=== PATIENT | male | born 2000 | race Caucasian/White ===

== ENCOUNTER 2019-09-23 18:23 | Emergency (ER) | payer MEDICAID ==
[~2019-09-23] VITALS: Ht 188 cm; Wt 77.0 kg
[~2019-09-23 18:23] MED LIST: LIDOcaine 1% W/epiNEPHrine 1:100,000 20ml vial ONE; NO HOME MEDS
[2019-09-23 18:37] VITALS: BP 120/78
[2019-09-23] MEDS ORDERED: TETanus/Pertussis (Acell)/Diphther VAC/PF (Tdap-Adult) 0.5ml syringe IMVAC ONE (19:40)
[2019-09-23] MEDS ORDERED: bacitracin 15gm ointment TP ONE (19:40)
== END 2019-09-23 20:36 | disposition home or self-care (01) ==
LOC: ER 18:24
DX: S60.453A Superficial foreign body of left middle finger, initial encounter (principal); F12.90 Cannabis use, unspecified, uncomplicated; Z56.0 Unemployment, unspecified; Z72.89 Other problems related to lifestyle; X58.XXXA Exposure to other specified factors, initial encounter; Y93.89 Activity, other specified; Y92.89 Other specified places as the place of occurrence of the external cause; Y99.8 Other external cause status
CPT/HCPCS: 10120; 90471; 90715; 99285

== ENCOUNTER 2021-07-30 15:33 | Emergency (ER) | payer MEDICAID ==
[~2021-07-30] VITALS: Ht 185.4 cm; Wt 79.0 kg
[~2021-07-30 15:33] MED LIST changes: -LIDOcaine 1% W/epiNEPHrine 1:100,000 20ml vial ONE
[2021-07-30 15:58] VITALS: BP 121/74
[2021-07-30] MEDS ORDERED: HYDROcodone/acetaminophen 10/325mg tab PO ONE (16:45)
[2021-07-30] MEDS ORDERED: HYDR-3965 PO (16:48)
[2021-07-30] MEDS ORDERED: IBUP-1986 PO (16:48)
--- NOTE | 2021-07-30 17:11 | NUR ---
po med given
== END 2021-07-30 17:14 | disposition home or self-care (01) ==
LOC: ER 15:36
DX: S62.001A Unspecified fracture of navicular [scaphoid] bone of right wrist, initial encounter for closed fracture (principal); F17.200 Nicotine dependence, unspecified, uncomplicated; Z79.899 Other long term (current) drug therapy; F12.90 Cannabis use, unspecified, uncomplicated; Z72.89 Other problems related to lifestyle; V00.131A Fall from skateboard, initial encounter; Y93.89 Activity, other specified; Y92.89 Other specified places as the place of occurrence of the external cause; Y99.8 Other external cause status
CPT/HCPCS: 29125; 73110; 99283

== ENCOUNTER 2021-08-17 13:19 | Emergency (ER) | payer MEDICAID ==
[~2021-08-17] VITALS: Ht 188 cm; Wt 79.5 kg
[~2021-08-17 13:19] MED LIST changes: +HYDR-3965 PO; +IBUP-1986 PO
[2021-08-17 13:29] VITALS: BP 116/71
== END 2021-08-17 14:24 | disposition home or self-care (01) ==
LOC: ER 13:20
DX: S63.502A Unspecified sprain of left wrist, initial encounter (principal); F17.200 Nicotine dependence, unspecified, uncomplicated; F12.10 Cannabis abuse, uncomplicated; X58.XXXA Exposure to other specified factors, initial encounter; Y93.89 Activity, other specified; Y92.89 Other specified places as the place of occurrence of the external cause; Y99.8 Other external cause status
CPT/HCPCS: 29125; 73110; 99283

== ENCOUNTER 2021-12-26 18:09 | Emergency (ER) | payer MEDICAID ==
[~2021-12-26] VITALS: Ht 188 cm; Wt 79.0 kg
[~2021-12-26 18:09] MED LIST changes: -HYDR-3965 PO
[2021-12-26 18:36] VITALS: BP 102/71
== END 2021-12-26 20:49 | disposition left against medical advice (07) ==
LOC: ER 18:10
DX: S60.211A Contusion of right wrist, initial encounter (principal); V00.131A Fall from skateboard, initial encounter; Y93.89 Activity, other specified; Y92.89 Other specified places as the place of occurrence of the external cause; Y99.8 Other external cause status
CPT/HCPCS: 73100; 73110; 99284

== ENCOUNTER 2022-01-01 04:19 | Emergency (ER) | payer MEDICAID ==
[~2022-01-01] VITALS: Ht 188 cm; Wt 75.9 kg
[2022-01-01] MEDS ORDERED: ipratropium/albuterol 3ml nebule NEB ONE (04:35)
--- NOTE | 2022-01-01 04:38 | NUR ---
RT PAGED FOR BREATHING TREATMENT
[2022-01-01 04:53] LABS: BASOPHILS % (AUTO) 0.3 % (0-1); EOSINOPHILS # (AUTO) 0.4 X10'3 (0-0.9); EOSINOPHILS % (AUTO) 3.8 % (0-6); HEMATOCRIT 47.5 % (42.0-52.0); HEMOGLOBIN 15.8 g/dl (14.0-17.9); LYMPHOCYTES # (AUTO) 0.9 X10'3 (1.1-4.8); LYMPHOCYTES % (AUTO) 7.8 % (21-51); MEAN CORPUSCULAR HEMOGLOBIN 27.8 PG (27.0-31.0); MEAN CORPUSCULAR HGB CONC 33.3 g/dL (33.0-36.5); MEAN CORPUSCULAR VOLUME 83.7 FL (78-98); MEAN PLATELET VOLUME 7.2 FL (7.4-10.4); MONOCYTES # (AUTO) 0.9 X10'3 (0-0.9); MONOCYTES % (AUTO) 7.6 % (2-12); NEUTROPHILS # (AUTO) 9.3 X10'3 (1.8-7.7); NEUTROPHILS % (AUTO) 80.5 % (42-75); PLATELET COUNT 233 X10'3 (140-440); RED BLOOD COUNT 5.68 X10'6 (4.70-6.10); RED CELL DISTRIBUTION WIDTH 13.1 % (11.5-14.5); WHITE BLOOD COUNT 11.6 X10'3 (4.5-11.0)
[2022-01-01 05:05] LABS: ALANINE AMINOTRANSFERASE 13 U/L (12-78); ALBUMIN 3.2 G/DL (3.4-5.0); ALBUMIN/GLOBULIN RATIO 1.1 (1.1-1.5); ALKALINE PHOSPHATASE 83 IU/L (46-116); ANION GAP 13 (8-16); ASPARTATE AMINO TRANSFERASE 12 U/L (10-37); BILIRUBIN,TOTAL 0.6 MG/DL (0.1-1.0); BLOOD UREA NITROGEN 9 MG/DL (7-18); BUN/CREATININE RATIO 10.6 (5.4-32.0); CALCIUM 7.2 MG/DL (8.5-10.1); CHLORIDE 111 MMOL/L (99-107); CREATININE 0.85 MG/DL (0.60-1.10); GLUCOSE 80 MG/DL (70-104); SODIUM 146 MMOL/L (135-145); eGFR > 90 ML/MIN
[2022-01-01 05:07] LABS: POTASSIUM 2.7 MMOL/L (3.5-5.1)
[2022-01-01] MEDS ORDERED: POTASSIUM BICARB 20meq eff tab 20 MEQ TABLET.EFF PO ONE (05:25)
[2022-01-01] MEDS ORDERED: ondansetron 4mg rapidly disintigrating tab PO ONE (05:25)
[2022-01-01] MEDS ORDERED: methylPREDNISolone sod succ 125mg/2ml vial IV ONE (05:30)
[2022-01-01] MEDS ORDERED: normal saline 1000ml 1,000 ML IV ONE (05:30)
[2022-01-01] MEDS ORDERED: ketorolac trometh. 30mg/ml inj. IV ONE (05:30)
[2022-01-01] MEDS ORDERED: AZIT-83 PO (05:49)
[2022-01-01] MEDS ORDERED: azithromycin 250mg tablet PO ONE (05:50)
[2022-01-01] MEDS ORDERED: PRED20TA PO (05:50)
[2022-01-01] MEDS ORDERED: ALBU8.5H17 INH (05:50)
[2022-01-01 06:39] VITALS: BP 133/73
== END 2022-01-01 06:50 | disposition home or self-care (01) ==
LOC: ER 04:20
DX: R06.02 Shortness of breath (principal); Z20.822 Contact with and (suspected) exposure to COVID-19; J02.9 Acute pharyngitis, unspecified; R51.9 Headache, unspecified; R11.0 Nausea; F17.200 Nicotine dependence, unspecified, uncomplicated; F12.10 Cannabis abuse, uncomplicated; Z87.81 Personal history of (healed) traumatic fracture; Z88.1 Allergy status to other antibiotic agents; Z79.899 Other long term (current) drug therapy; Z79.2 Long term (current) use of antibiotics; Z79.1 Long term (current) use of non-steroidal anti-inflammatories (NSAID)
CPT/HCPCS: 36415; 71045; 80053; 85025; 87635; 94640; 96374; 96375; 99285; C9803; J1885; J2930; J7030; 94760; A4615

== ENCOUNTER 2022-02-20 04:06 | Emergency (ER) | payer MEDICAID ==
[~2022-02-20] VITALS: Ht 188 cm; Wt 77.2 kg
[~2022-02-20 04:06] MED LIST changes: +ALBU8.5H17 INH
[2022-02-20 04:09] VITALS: BP 115/71
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
[2022-02-20] MEDS ORDERED: HYDROcodone/acetaminophen 5mg/325mg tablet PO ONE (05:00)
--- NOTE | 2022-02-20 05:01 | NUR ---
inital triage BP read extremely elevated at 201 systolic. rechecked and BP normalized
[2022-02-20] MEDS ORDERED: bacitracin 15gm ointment TP ONE (08:15)
[2022-02-20] MEDS ORDERED: ibuprofen tablet 400 MG TABLET PO ONE (08:15)
[2022-02-20] MEDS ORDERED: TETanus/Pertussis (Acell)/Diphther VAC/PF (Tdap-Adult) 0.5ml syringe IMVAC ONE (08:55)
--- NOTE | 2022-02-20 09:00 | NUR ---
Pt given and understands d/c instructions. Ambulatory with a steady gait.
== END 2022-02-20 09:00 | disposition home or self-care (01) ==
LOC: ER 04:07
DX: S41.112A Laceration without foreign body of left upper arm, initial encounter (principal); R42 Dizziness and giddiness; F17.200 Nicotine dependence, unspecified, uncomplicated; F12.90 Cannabis use, unspecified, uncomplicated; Z72.89 Other problems related to lifestyle; Z79.899 Other long term (current) drug therapy; Y08.89XA Assault by other specified means, initial encounter; Y93.89 Activity, other specified; Y92.89 Other specified places as the place of occurrence of the external cause; Y99.8 Other external cause status
CPT/HCPCS: 12002; 71046; 90471; 90715; 99284

== ENCOUNTER 2022-03-06 06:52 | Emergency (ER) | payer MEDICAID ==
[~2022-03-06] VITALS: Ht 182.9 cm; Wt 79.5 kg
[2022-03-06 07:04] VITALS: BP 123/78
== END 2022-03-06 07:56 | disposition home or self-care (01) ==
LOC: ER 06:53
DX: S21.112D Laceration without foreign body of left front wall of thorax without penetration into thoracic cavity, subsequent encounter (principal); Z20.822 Contact with and (suspected) exposure to COVID-19; Z48.00 Encounter for change or removal of nonsurgical wound dressing; F12.10 Cannabis abuse, uncomplicated; J45.909 Unspecified asthma, uncomplicated; Z79.899 Other long term (current) drug therapy; X58.XXXD Exposure to other specified factors, subsequent encounter
CPT/HCPCS: 87502; 87503; 87635; 99283; C9803